=== PATIENT | female | born 1930 | race Caucasian/White ===

== ENCOUNTER 2017-01-04 07:17 | Emergency (ER) | payer MEDICARE, BC ==
[2017-01-04 07:23] VITALS: BP 127/83; PULSE 78; RESP 16; TEMP 98.2; O2SAT 96
[2017-01-04] MEDS ORDERED: XARE15TA PO (07:51)
[2017-01-04] MEDS ORDERED: LEVO88TA2 PO (07:51)
[2017-01-04] MEDS ORDERED: FURO40TA PO (07:51)
[2017-01-04] MEDS ORDERED: ASPI81CH CHEW (07:51)
[2017-01-04] MEDS ORDERED: LISI10TA3 PO (07:51)
[2017-01-04] MEDS ORDERED: POTA-243 PO (07:51)
[2017-01-04] MEDS ORDERED: CRAN1TAB5 PO (07:51)
[2017-01-04] MEDS ORDERED: CENTCHW4 CHEW (07:51)
[2017-01-04] MEDS ORDERED: IRON27TA PO (07:51)
[2017-01-04] MEDS ORDERED: METO50TA PO (07:51)
[2017-01-04] MEDS ORDERED: SIMV40TA PO (07:51)
[2017-01-04] MEDS ORDERED: DOXY100C PO (07:53)
[2017-01-04] MEDS ORDERED: promethazine dm PO (07:53)
[2017-01-04] MEDS ORDERED: RESP: ALBUTEROL 2.5 MG/IPRATROPIUM 0.5 MG NEB (SCH) INH ONE (08:00)
--- NOTE | 2017-01-04 08:14 | PD ---
HPI Chief Complaint: Respiratory Symptoms Time Seen by Provider: 07:29 Travel History International Travel<30 days: No Contact w/Intl Traveler<30days: No Traveled to known affect area: No History of Present Illness HPI Patient is 86 years old. She has had a runny nose for 4 days and has been coughing quite frequently. This morning she describes a fullness sensation in her throat and as if it is difficult to breathe at times because of the fullness in the throat. She denies chest pain. She's had no fever. She reports the cough has been bothersome. She goes on to explain a sensation as if she might pass out. Yesterday she took promethazine DM, nearly an entire bottle. Her cough has been quite severe for 3 days. [facility] Past Medical History Diminished Hearing: No Hypertension: Yes Thyroid Disease: Yes Tetanus Vaccination: Unknown ?: Not Past Surgical History Cardiac Surgery: Yes Cholecystectomy: Yes Other Surgery: Yes (stent in leg) Social History Alcohol Use: No Tobacco Use: No Substance Use: No Allergies-Medications (Allergen,Severity, Reaction): Coded Allergies: codeine (Verified Allergy, Severe, Anaphylaxis, 01/04/17) Reported Meds & Prescriptions Reported Meds & Active Scripts Active Prednisone 10 Mg Tab 10 Mg PO DAILY Dewar Nasal [place] (Sodium Chloride) 0.65% [place] 2 [place] EACH NARE DIRECTED PRN Reported [promethazine dm] 5 Ml PO HS Doxycycline Hyclate 100 Mg Cap 100 Mg PO BID Aspirin 81 Mg Chew 81 Mg CHEW DAILY Iron (Ferrous Gluconate) 27 Mg Tab 65 Mg PO DAILY Cranberry Tablet (Cranberry Conc/C/Bacill Coag) 1 Each Tablet 1 Tab PO DAILY Centrum (Multiple Vitamins W/ Minerals) 1 Chew 1 Tab CHEW DAILY Klor-Con 10 (Potassium Chloride) 10 Meq Tab 10 Meq PO DAILY Metoprolol Tartrate 50 Mg Tab 50 Mg PO BID Lisinopril 10 Mg Tab 10 Mg PO DAILY Simvastatin 40 Mg Tab 40 Mg PO HS Furosemide 40 Mg Tab 40 Mg PO DAILY Xarelto (Rivaroxaban) 15 Mg Tab 15 Mg PO DAILY Levothyroxine (Levothyroxine Sodium) 88 Mcg Tab 88 Mcg PO DAILY Review of Systems Except as stated in HPI: all other systems reviewed are Neg Physical Exam Narrative GENERAL: 86 yo F, WNWD, SKIN: Warm and dry. HEAD: Atraumatic. Normocephalic. EYES: Pupils equal and round. No scleral icterus. No injection or drainage. ENT: No nasal bleeding or discharge. Mucous membranes pink and moist. Posterior oropharynx widely patent. NECK: Trachea midline. No JVD. CARDIOVASCULAR: Regular rate and rhythm. RESPIRATORY: No accessory muscle use. Clear to auscultation. Breath sounds equal bilaterally. GASTROINTESTINAL: Abdomen soft, non-tender, nondistended. Hepatic and splenic margins not palpable. MUSCULOSKELETAL: Extremities without clubbing, cyanosis, or edema. No obvious deformities. NEUROLOGICAL: Awake and alert. No obvious cranial nerve deficits. Motor grossly within normal limits. Five out of 5 muscle strength in the arms and legs. Normal speech. PSYCHIATRIC: Appropriate mood and affect; insight and judgment normal. 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 Otherwise unremarkable. Linden Redd MD Pt received Duonebs and Solumedrol. The patient is resting comfortably and feels better, is alert and in no distress. The patients results and examination findings were discussed. The repeat examination is unremarkable and benign. The history, exam, diagnostic testing, and current condition do not suggest any significant pathology to warrant further testing, continued ED treatment, admission, or surgical evaluation at this point. The vital signs have been stable. The patient does not have uncontrollable pain, intractable vomiting, or other significant symptoms. The patient's condition is stable and appropriate for discharge. The patient will pursue further outpatient evaluation with a primary care physician or other designated or consulting physician as indicated in the discharge instructions. The patient expressed understanding and was agreeable with this plan. Diagnosis Primary Impression: Cough Additional Impressions: Globus sensation Post-nasal drip Referrals: Jadon Damico MD PhD 2 days Additional Instructions: You have a choice when it comes to health care, and we are glad that you chose [facility] Hopefully, we have met your expectations on today's visit. You are welcome to return to [facility] at any time, as we are committed to meeting the health care needs of our community. Med/Other Pt SpecificInfo: Prescription(s) given Scripts Prednisone (Prednisone) 10 Mg Tab 10 MG PO DAILY, #5 TAB 0 Refills Prov: Go Lou MD 01/04/17 Saline Nasal (Dewar Nasal [place]) 0.65% [place] 2 SPRAY EACH NARE DIRECTED Y for NASAL CONGESTION, #1 BOTTLE 0 Refills Prov: Go Lou MD 01/04/17 Disposition: 01 DISCHARGE HOME Condition: Stable Go Lou MD Jan 04, 2017 08:14
--- NOTE | 2017-01-04 09:06 | RADRPT ---
EXAM DATE/TIME: 01/04/2017 07:57 [place] COMPARISON: No previous studies available for comparison. INDICATIONS : Short of breath, swelling of throat x 3 days. MEDICAL HISTORY : Hypertension. Thyroid disease. SURGICAL HISTORY : Cholecystectomy. CABG. ENCOUNTER: Initial ACUITY: 3 days PAIN SCORE: 0/10 LOCATION: neck FINDINGS: Two view examination of the soft tissues of the neck demonstrates the hypopharyngeal airway to have a grossly normal configuration. The trachea is midline. No radiopaque foreign bodies are seen. 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 Otherwise unremarkable. Linden Redd MD on January 04, 2017 at 9:04 Board Certified Radiologist. This report was verified electronically.
[2017-01-04] MEDS ORDERED: OCEA0.653 EACH NARE (09:36)
[2017-01-04] MEDS ORDERED: PRED10 PO (09:41)
[2017-01-04] MEDS ORDERED: ALBUTEROL SULFATE 90 MCG/ACT HFA 8 GM INHALER INH ONE (09:45)
[2017-01-04] MEDS ORDERED: predniSONE 20 MG TAB PO ONE (09:45)
[2017-01-04 09:58] VITALS: BP 146/73
== END 2017-01-04 10:17 | disposition home or self-care (01) ==
LOC: PHED 07:17
DX: R05 Cough (principal); R09.82 Postnasal drip; F45.8 Other somatoform disorders; I10 Essential (primary) hypertension; E07.9 Disorder of thyroid, unspecified; Z90.49 Acquired absence of other specified parts of digestive tract; Z95.1 Presence of aortocoronary bypass graft
CPT/HCPCS: 70360; 94664; 99284; J7512